=== PATIENT | female | born 1975 | race Caucasian/White ===

== ENCOUNTER 2017-03-31 10:22 | Emergency (ER) | payer SELFPAY ==
[2017-03-31 12:03] VITALS: BP 188/113
--- NOTE | 2017-03-31 12:06 | UC ---
Manuel Bean Aidan, scribed for Jessenia Gleason MD on 03/31/17 at 1113 . Skin Complaint HPI - HPI Summary HPI Summary: 41 y/o female presents to the Urgent Care with a complaint of acute, constant, [id number] itchy red bumps on her hands and forearms bilaterally that have persisted for the past 20 years. She is here today because her rash has been exacerbated and she requests prednisone. She has tried applying Triamcinolone ointment to no relief. Additionally, she requests Xanax for anxiety. ISTOP reference #[id number]. - History of Current Complaint Chief Complaint: UCSkin Time Seen by Provider: 03/31/17 10:49 Stated Complaint: SKIN ISSUE Hx Obtained From: Patient Hx Last Menstrual Period: 03/12/17 ?: No Onset/Duration: Gradual Onset, Lasting Weeks, Still Present, Worse Since - very recently Skin Exposure Onset/Duration: Worse Since: - very recently (see hpi) Timing: Constant Onset Severity: Moderate Current Severity: Moderate Pain Intensity: 0 - just itchy Pain Scale Used: 0-10 Numeric Location: Discrete - hands and arms bilaterally Character: Pruritus, Redness, Raised Aggravating: Other - unknown Alleviating: Other - unknown Associated Signs & Symptoms: Negative: Negative - anxiety, itchiness - Allergy/Home Medications Allergies/Adverse Reactions: Allergies Allergy/AdvReac Type Severity Reaction Status Date / Time Penicillins Allergy Unknown Verified 08/22/16 10:05 Reaction Details Review of Systems Constitutional: Negative Skin: Rash Eyes: Negative ENT: Negative Respiratory: Negative Cardiovascular: Negative Gastrointestinal: Negative Genitourinary: Negative Motor: Negative Neurovascular: Negative Musculoskeletal: Negative Neurological: Negative Psychological: Anxious All Other Systems Reviewed And Are Negative: Yes PMH/Surg Hx/FS Hx/Imm Hx - Surgical History Surgical History: Yes Surgery Procedure, Year, and Place: d/c 09/30/14 - Family History Known Family History: Positive: Hypertension - Social History Occupation: Employed Full-time Lives: Alone Alcohol Use: Daily Alcohol Amount: Every few days Substance Use Type: None Smoking Status (MU): Heavy Every Day Tobacco Smoker Type: Cigarettes Amount Used/How Often: 1/2 PPD Have You Smoked in the Last Year: Yes Household Exposure Type: Cigarettes - Immunization History Most Recent Influenza Vaccination: never Most Recent Tetanus Shot: up to date Most Recent Pneumonia Vaccination: never Physical Exam Triage Information Reviewed: Yes Appearance: Well-Nourished Vital Signs: Initial Vital Signs Temp 98.1 F 03/31/17 10:40 Pulse 96 03/31/17 10:40 Resp 18 03/31/17 10:40 BP 136/101 03/31/17 10:40 Pulse Ox 100 03/31/17 10:40 Vital Signs Reviewed: Yes Eye Exam: Normal ENT Exam: Normal ENT: Positive: Normal ENT inspection Neck exam: Normal Neck: Positive: Supple Respiratory Exam: Normal, Other - normal respiratory rate, no dyspnea no tachypnea Respiratory: Positive: Chest non-tender, Lungs clear, Normal breath sounds, No respiratory distress Cardiovascular Exam: Normal, Other - regular rate, good general skin color, good capillary refill Cardiovascular: Positive: RRR, No Murmur, Pulses Normal, Brisk Capillary Refill Abdominal Exam: Normal Abdomen Description: Positive: Nontender, No Organomegaly, Soft Bowel Sounds: Positive: Present Musculoskeletal Exam: Normal Musculoskeletal: Positive: Strength Intact Neurological Exam: Normal, Other - nonfocal, grossly intact Psychological Exam: Normal, Other - responds easily and appropriately Skin Exam: Other - bilateral forearm, extending to fingertip dermatitis with red raised plaques and scattered blisters, in more or less glove pattern. No mary beth cellulitis or infection. CR > 2 xec, + sensation present light touch. Moves all fingers and both hands. Bends / straigthtens elbow. Course/Dx - Course Course Of Treatment: Reviewed ISTOP, c/w hx. Narc/archie talk w/ pt. Reviewed importance of f/u pcp, as soon as possible. Advised to seek medical attention for worse or new problems. Requests rx refill for synthroid generic. She is searching for a new doctor 2/2 insurance changes, and trying to find a new doctor. She says she is aware of the importance of follow up. Rx refill for triamcinolone (requests cream not ointment). Delay in discharge, due to computer error in transmitting scripts. BRIAN Chin (working under my auspices today) wrote alprozolam script. Questions answered to the best of my ability. - Diagnoses Provider Diagnoses: dermatitis. anxiety. thyroid medication refill Discharge - Discharge Plan Condition: Stable Disposition: HOME Prescriptions: ALPRAZolam TAB* [Xanax TAB*] 0.5 mg PO Q8H PRN #21 tab MDD THREE TABS PRN Reason: Anxiety Alprazolam [Alprazolam Odt] 0.5 mg PO Q8H PRN #21 tab MDD 3 PRN Reason: Anxiety Levothyroxine TAB* [Synthroid TAB*] 75 mcg PO DAILY #30 tab Triamcinolone 0.5% CREAM(NF) [Triamcinolone 0.5% CREAM*] 1 applic TOPICAL BID # 1 tube predniSONE TAB* [Deltasone TAB*] 10 mg PO DAILY #20 tab Patient Education Materials: Anxiety (ED), Dermatitis (ED) Referrals: No Primary Care Phys,NOPCP [Primary Care Provider] - Additional Instructions: Follow up with your primary care physician as soon as you are able. Seek medical attention for worse or new problems in the meantime. The documentation as recorded by the Manuel holguin Aidan accurately reflects the service I personally performed and the decisions made by me, Jessenia Gleason MD.
== END 2017-03-31 12:03 | disposition home or self-care (01) ==
LOC: UCEAST 10:22
DX: L30.9 Dermatitis, unspecified (principal); F41.9 Anxiety disorder, unspecified; Z76.0 Encounter for issue of repeat prescription; Z72.0 Tobacco use
CPT/HCPCS: 99212; G0463

== ENCOUNTER 2017-07-27 08:57 | Emergency (ER) | payer SELFPAY ==
--- NOTE | 2017-07-27 10:43 | UC ---
Truncal Trauma HPI - HPI Summary HPI Summary: 41 yo female 3 days s/p falling onto a stool injured left chest below breast also hit left upper arm hurts to take a deep breath hurts to lay on left side - History Of Current Complaint Chief Complaint: UCGeneralIllness Stated Complaint: RIB PAIN Time Seen by Provider: 07/27/17 10:08 Hx Obtained From: Patient Hx Last Menstrual Period: 07/25/17 Onset/Duration: Sudden Onset Onset Of Pain: Immediate Severity Currently: Severe Pain Intensity: 8 Pain Scale Used: 0-10 Numeric Mechanism Of Injury: Fall From A Standing Position Aggravating Factor(s): Movement, Deep Breathing, Cough Alleviating factor(s): Nothing Associated Signs And Symptoms: Positive: Chest Pain Torso: 1 - tender 2 - ecchymosis - Allergies/Home Medications Allergies/Adverse Reactions: Allergies Allergy/AdvReac Type Severity Reaction Status Date / Time Penicillins Allergy Unknown Verified 07/27/17 09:52 Reaction Details Home Medications: Home Medications Ibuprofen TAB* [Advil TAB*] 3 tab PO PRN 07/27/17 [History] PMH/Surg Hx/FS Hx/Imm Hx Previously Healthy: Yes - Surgical History Surgical History: Yes Surgery Procedure, Year, and Place: d/c 09/30/14 - Family History Known Family History: Positive: Hypertension - Social History Alcohol Use: Daily Alcohol Amount: Every few days Substance Use Type: None Smoking Status (MU): Heavy Every Day Tobacco Smoker Type: Cigarettes Amount Used/How Often: 1/2 PPD Have You Smoked in the Last Year: Yes Household Exposure Type: Cigarettes - Immunization History Most Recent Influenza Vaccination: never Most Recent Tetanus Shot: up to date Most Recent Pneumonia Vaccination: never Review of Systems Constitutional: Negative Skin: Bruising Eyes: Negative ENT: Negative Respiratory: Negative Cardiovascular: Chest Pain Gastrointestinal: Negative Genitourinary: Negative Motor: Negative Neurovascular: Negative Musculoskeletal: Negative Neurological: Negative Psychological: Negative Is Patient Immunocompromised?: No All Other Systems Reviewed And Are Negative: Yes Physical Exam Triage Information Reviewed: Yes Appearance: Well-Appearing, No Pain Distress, Well-Nourished Vital Signs: Initial Vital Signs Temp 99.4 F 07/27/17 09:53 Pulse 90 07/27/17 09:53 Resp 18 07/27/17 09:53 BP 190/96 07/27/17 09:53 Pulse Ox 100 07/27/17 09:53 Vital Signs Reviewed: Yes Eyes: Positive: Conjunctiva Clear ENT: Positive: Hearing grossly normal, Pharynx normal, Pharyngeal erythema Neck: Positive: Supple Respiratory: Positive: Lungs clear, Normal breath sounds, No respiratory distress. Negative: Chest non-tender Cardiovascular: Positive: RRR, No Murmur Abdomen Description: Positive: Nontender Musculoskeletal: Positive: ROM Intact, No Edema Neurological: Positive: Alert Psychological Exam: Normal Skin Exam: Normal Diagnostics - Laboratory Diagnostic Studies Completed/Ordered: POx (RA): 100% Comment: normal/not hypoxic Truncal Trauma Course/Dx - Differential Dx/Diagnosis Provider Diagnoses: LEFT SIDE CHEST WALL AND RIB CONTUSION. ? OCCULT RIB FRACTURE. LEFT ARM CONTUSION Discharge - Discharge Plan Condition: Stable Disposition: HOME Prescriptions: HYDROcodone/ACETAMIN 5-325 MG* [Blanchard 5-325 TAB*] 1 tab PO Q4H PRN #20 tab MDD 4 PRN Reason: Pain Ibuprofen TAB* [Motrin TAB*] 600 mg PO Q6H PRN #40 tab PRN Reason: Pain Patient Education Materials: Rib Contusion (ED) Forms: *Work Release Referrals: [facility] [place] [facility] [place]] - As Soon As Possible (call to find a provider you need your BP followed) No Primary Care Phys,NOPCP [Primary Care Provider] -
--- NOTE | 2017-07-27 11:02 | RAD ---
Indication: LEFT lower anterior rib pain post fall. Comparison: October 06, [address] Technique: Dual energy PA chest and 4 view dedicated LEFT unilateral rib series. Report: Artifact from extrinsic jewelry at the LEFT margin of the jugular notch/base of the neck. Inferolateral LEFT skin marker indicating the site of clinical concern at the level of the eighth rib anterolaterally. Mild osseous irregularity with suggestion of callus formation at the LEFT eighth rib laterally most consistent with a healing fracture. No acute rib fracture evident. Clear lungs and pleural spaces. Negative for pneumothorax. The heart, pulmonary vasculature, and mediastinal contours are unremarkable. IMPRESSION: No acute rib fracture evident. Suggestion of a healing fracture at the LEFT eighth rib laterally. Negative for pneumothorax or pleural effusion.
[2017-07-27 11:31] VITALS: BP 160/90
== END 2017-07-27 11:21 | disposition home or self-care (01) ==
LOC: UCEAST 08:57
DX: S22.32XA Fracture of one rib, left side, initial encounter for closed fracture (principal); S20.212A Contusion of left front wall of thorax, initial encounter; W19.XXXA Unspecified fall, initial encounter; Y92.9 Unspecified place or not applicable; Z88.0 Allergy status to penicillin; F17.210 Nicotine dependence, cigarettes, uncomplicated
CPT/HCPCS: 99212; G0463

== ENCOUNTER 2017-09-16 11:38 | Emergency (ER) | payer SELFPAY ==
[2017-09-16 11:49] VITALS: BP 142/88
--- NOTE | 2017-09-16 13:02 | UC ---
Back Pain HPI - HPI Summary HPI Summary: Pt presents reporting 3 days of back pain. Pt states started at work with lifting. Pain in lower back, bilateral. No radiation. No change in bowel/ bladder. Pt with h/o similar back pain. No paresthesia. Pt has been wearing topical OTC patches. No other complaints Pt's medications reviewed this visit - History of Current Complaint Chief Complaint: UCBackPain Stated Complaint: BACK PAIN Time Seen by Provider: 09/16/17 12:44 Hx Obtained From: Patient Hx Last Menstrual Period: today ?: No Onset/Duration: Gradual Onset, Lasting Days Severity Initially: Moderate Severity Currently: Moderate Pain Intensity: 4 Pain Scale Used: 0-10 Numeric Character: Spasmodic, Stiffness Aggravating Factor(s): Movement, Lifting, Bending - Allergies/Home Medications Allergies/Adverse Reactions: Allergies Allergy/AdvReac Type Severity Reaction Status Date / Time Penicillins Allergy Unknown Verified 09/16/17 11:52 Reaction Details PMH/Surg Hx/FS Hx/Imm Hx Previously Healthy: Yes - Surgical History Surgical History: Yes Surgery Procedure, Year, and Place: d/c 09/30/14 - Family History Known Family History: Positive: Hypertension - Social History Occupation: Employed Full-time Lives: With Family Alcohol Use: Occasionally Alcohol Amount: Every few days Substance Use Type: None Smoking Status (MU): Heavy Every Day Tobacco Smoker Type: Cigarettes Amount Used/How Often: 1/2 PPD Have You Smoked in the Last Year: Yes Household Exposure Type: Cigarettes - Immunization History Most Recent Influenza Vaccination: never Most Recent Tetanus Shot: up to date Most Recent Pneumonia Vaccination: never Review of Systems Constitutional: Negative Skin: Negative Motor: Negative Neurovascular: Negative Musculoskeletal: Other: - back pain Neurological: Negative Psychological: Negative All Other Systems Reviewed And Are Negative: Yes Physical Exam Triage Information Reviewed: Yes Appearance: Well-Appearing, No Pain Distress, Well-Nourished, Other: - Pt curled up sleeing in stretcher. NAD pt easily changed position to sitting and standing without difficulty or limitation Vital Signs: Initial Vital Signs Temp 97.7 F 09/16/17 11:43 Pulse 91 09/16/17 11:43 Resp 16 09/16/17 11:43 BP 142/88 09/16/17 11:43 Pulse Ox 100 09/16/17 11:43 Vital Signs Reviewed: Yes Eye Exam: Normal Eyes: Positive: Conjunctiva Clear ENT Exam: Normal ENT: Positive: Normal ENT inspection, Hearing grossly normal, Pharynx normal Dental Exam: Normal Neck exam: Normal Neck: Positive: Supple, Nontender, No Lymphadenopathy Respiratory Exam: Normal Respiratory: Positive: Chest non-tender, Lungs clear, Normal breath sounds, No respiratory distress, No accessory muscle use Cardiovascular Exam: Normal Cardiovascular: Positive: RRR, No Murmur Abdominal Exam: Normal Abdomen Description: Positive: Nontender - no spinous process pain c/t/l/s full AROM upper ext + mild paraspinal pain lower lumbar area + SLE b/l + flex/ext knee,ankles, great toe Musculoskeletal Exam: Normal Neurological Exam: Normal Neurological: Positive: Other: - 2+ patellar b/l no clonus + gross sensation throughout Psychological Exam: Normal Back Pain Course/Dx - Course Course Of Treatment: Pt with back pain after lifting. no crepitus. pt in no obvious discomfort. CSM intact. heat. stretch. motrin/apap. work limitations - Differential Dx/Diagnosis Provider Diagnoses: back strain Discharge - Discharge Plan Condition: Stable Disposition: HOME Prescriptions: Cyclobenzaprine HCl [Flexeril 5 mg (NF)] 5 mg PO BID #10 tab Patient Education Materials: Low Back Strain (ED) Forms: *Work Release Referrals: Jeffry Carlos MD [Primary Care Provider] - Additional Instructions: - okay to take NAproxyn 2 times a day. you may also take Tylenol every 6 hours as needed - okay to take muscle relaxer as prescribed. Do not drive, operate machinery or drink alcohol while taking xanax - apply heat, 20 minutes at a time, 2-3 times a day for back pain. when your muscles are warm, slow gentle stretching exercises you have been given a referral to physical therapy call your doctor or return with questions or concerns
== END 2017-09-16 13:13 | disposition home or self-care (01) ==
LOC: UCEAST 11:38
DX: M54.9 Dorsalgia, unspecified (principal); Z88.0 Allergy status to penicillin
CPT/HCPCS: 99212; G0463

== ENCOUNTER 2017-11-06 11:44 | Emergency (ER) | payer OTHER ==
[2017-11-06 14:31] VITALS: BP 153/101
[2017-11-06] MEDS ORDERED: Ketorolac INJ* 60 MG/2 ML VIAL IM ONE (14:52)
--- NOTE | 2017-11-06 15:12 | UC ---
Back Pain HPI - HPI Summary HPI Summary: 41 y/o female presents to the urgent care c/p Rt side lower back pain s/p fall since Thursday11/03/2017. Pt reports she slipped on ice at home and fell on her buttocks. Pain was mild. However this morning she lifted a 60lb box at work and pain became worse 6/10 with movement radiating to her Rt hip. Pt denies numbness or tingling over the lower extremities, saddle anesthesia, fecal or urinary incontinence, abdominal pain, SOB, chest pain, N/V/D LMP:11/05/2016. - History of Current Complaint Chief Complaint: UCBackPain Stated Complaint: FALL INJURY Time Seen by Provider: 11/06/17 14:39 Hx Obtained From: Patient Hx Last Menstrual Period: 11/05/2017 ?: No Onset/Duration: Sudden Onset, Lasting Days - 3 days, Still Present, Worse Since - today Timing: Constant Severity Initially: Mild Severity Currently: Moderate Pain Intensity: 6 Pain Scale Used: 0-10 Numeric Character: Sharp, Spasmodic Aggravating Factor(s): Movement, Lifting, Bending Alleviating Factor(s): Rest, OTC Meds Associated Signs And Symptoms: Positive: Pain with Weight Bearing. Negative: Swelling, Redness, Bruising, Fever, Weakness, Numbness, Tingling, Bladder Incontinence, Bowel Incontinence - Risk Factors AAA Risk Factors: Negative TAD Risk Factors: Negative Cauda Equina Risk Factors: Negative Epidural Abscess Risk Factors: Negative - Allergies/Home Medications Allergies/Adverse Reactions: Allergies Allergy/AdvReac Type Severity Reaction Status Date / Time Penicillins Allergy Unknown Verified 11/06/17 14:23 Reaction Details PMH/Surg Hx/FS Hx/Imm Hx Previously Healthy: Yes Endocrine History: Hypothyroidism Psychological History: Anxiety - Surgical History Surgical History: None Surgery Procedure, Year, and Place: d/c 09/30/14 - Family History Known Family History: Positive: Hypertension - Social History Occupation: Employed Full-time Lives: With Family Alcohol Use: Daily Alcohol Amount: 2 glasses of wine per night Substance Use Type: Prescribed Substance Use Comment - Amount & Last Used: xanax as needed Smoking Status (MU): Heavy Every Day Tobacco Smoker Type: Cigarettes Amount Used/How Often: 1/2 PPD Have You Smoked in the Last Year: Yes Household Exposure Type: Cigarettes - Immunization History Most Recent Influenza Vaccination: never Most Recent Tetanus Shot: up to date Most Recent Pneumonia Vaccination: never Review of Systems Constitutional: Negative Skin: Negative Eyes: Negative ENT: Negative Respiratory: Negative Cardiovascular: Negative Gastrointestinal: Negative Genitourinary: Negative Motor: Negative Neurovascular: Negative Musculoskeletal: Decreased ROM - lower back, Other: - lower back pain s/p fall Neurological: Negative Psychological: Negative Is Patient Immunocompromised?: No All Other Systems Reviewed And Are Negative: Yes Physical Exam Triage Information Reviewed: Yes Vital Signs: Initial Vital Signs Temp 99.1 F 11/06/17 14:24 Pulse 98 11/06/17 14:24 Resp 18 11/06/17 14:24 BP 153/101 11/06/17 14:24 Pulse Ox 99 11/06/17 14:24 - Additional Comments Vital Signs Reviewed: Yes Appearance: Well-Appearing, Well-Nourished, Thin female sitting in the examining table w/o any apparent distress. Eyes: Positive: Conjunctiva Clear - PERRLA, EOMI. ENT: Positive: Normal ENT inspection, Hearing grossly normal, Pharynx normal, TMs normal, Uvula midline Neck: Positive: Supple, Nontender, No Lymphadenopathy Respiratory: Positive: Chest non-tender, Lungs clear, Normal breath sounds, No respiratory distress Cardiovascular: Positive: RRR, No Murmur, Pulses Normal, Brisk Capillary Refill Abdomen Description: Positive: Nontender, No Organomegaly, Soft. Negative: CVA Tenderness (R), CVA Tenderness (L) Bowel Sounds: Positive: Present Musculoskeletal: Positive: Strength Intact, Other: - BACK: Patient walked into the urgent care room with symmetric ambulation, No signs of limping, antalgic, able to bear weight. No signs of trauma, No masses palpated. Point tenderness at the level of L1-L4, RT paraspinal muscle spasm at level L4 -No CVAT, no flank ecchymosis . No sacroiliac notch tenderness, No saddle anesthesia.ROM: limited due to pain, Straight Leg Raise: negative. Patellar reflexes: brisk, symmetric Muscle strength lower extremities. Dorsiflexion/ plantar flexion of ankles. Heel/ toe walk. Lower extremities: Femoral, popliteal, posterior tibial , and dorsalis pedis pulses WNL. Pt refuse rectal exam Neurological: Positive: Alert, Muscle Tone Normal Psychological Exam: Normal Skin Exam: Normal Back Pain Course/Dx - Course Course Of Treatment: 41 y/o female presents to the urgent care c/p Rt side lower back pain s/p fall since Thursday11/03/2017. Pt reports she slipped on ice at home and fell on her buttocks. Pain was mild. However this morning she lifted a 60lb box at work and pain became worse 6/10 with movement radiating to her Rt hip. Pt denies numbness or tingling over the lower extremities, saddle anesthesia, fecal or urinary incontinence, abdominal pain, SOB, chest pain, N/V/ D. LMP:11/05/2016.Hx obtained. Pt with mid point tenderness at the level of L1- L4, RT paraspinal muscle spasm at level L4. Lumbar spine X-ray ordered: Impression: DDD at L1-L2, L2-L3, L3-L4, No acutes osseous injury observed and mild scoliois.Toradol IM inj ordered at the clinic. Given by nurse. Pt tolerated well IM inj and pain decrease. Pt Rx Naproxen PO, flexeril PO, Predinisone PO taper dose and given a PT referral. Patient was instructed to the f/u wit orthopedic in 1 week if symptoms do not improve or worsen. Patient understands and agrees. Patient is able to ambulate freely w/o aid or limp. Pt' s BP is elevated today advised to decrease salt in diet, monitor BP and f/u with PCP for further management. Plan of care was discussed with the patient and patient understands and agrees. All questions were answered at patient satisfaction. Pt left clinic hemodynamically stable. - Differential Dx/Diagnosis Differential Diagnosis/HQI/PQRI: Arthritis, Compressive Cord Syndrome, Fracture , Herniated Disc, Strain, Sprain Provider Diagnoses: 1- Acute lower back pain. 2- Degenerative Disce disease. 3 -Back muscle spasm. 4- Elevated BP w/o Hx of HTN Discharge - Discharge Plan Condition: Stable Disposition: HOME Prescriptions: Cyclobenzaprine TAB* [Flexeril 10 MG TAB*] 10 mg PO TID PRN #15 tab PRN Reason: Spasms - Back Methylprednisolone [Medrol Dosepak 4 MG*] 4 mg PO .SEE BETTY INSTRUCTION #1 betty Naproxen [Naproxen 500 mg] 500 mg PO Q8H PRN #30 tab PRN Reason: Pain Patient Education Materials: Acute Low Back Pain (ED), Low-Sodium Diet (ED), Muscle Spasm (ED), Degenerative Disc Disease (ED) Referrals: Jeffry Carlos MD [Primary Care Provider] - 1 Week Adan Lennon MD [Medical Doctor] - 1 Week Additional Instructions: 1- Please take Naproxen PO as directed after meals for pain. Take Medrol dose betty to alleviate symptoms 2- Take Flexeril PO as directed for muscle spasm. Please do not drive while taking the medication. 3- Wear a back support. Avoid strenuous exercise of heavy lifting. 4- Please follow up with Orthopedic Dr or your PCP in 1 week if not improvement of symptoms, for further management. 5-Your BP is elevated today. please decrease salt in your diet, monitor BP and if it continues to be elevated please f/u with your PCP for further management
--- NOTE | 2017-11-06 15:24 | RAD ---
INDICATION: Low back pain status post fall. COMPARISON: There are no prior studies available for comparison. TECHNIQUE: 5 views of the lumbar spine were obtained including lateral, oblique, AP and a coned-down lateral view of the lumbar sacral junction. FINDINGS: There is a mild lumbar scoliosis convex toward the right side. The vertebra are otherwise in normal alignment. No fracture is seen. There is mild degenerative disc disease at the L1-L2, L2-L3 and L3-L4 levels. IMPRESSION: NO EVIDENCE FOR FRACTURE.
== END 2017-11-06 16:05 | disposition home or self-care (01) ==
LOC: UCEAST 11:44
DX: M54.5 Low back pain (principal); M62.830 Muscle spasm of back; M51.36 Other intervertebral disc degeneration, lumbar region; E03.9 Hypothyroidism, unspecified; F41.9 Anxiety disorder, unspecified; Z88.0 Allergy status to penicillin; F17.210 Nicotine dependence, cigarettes, uncomplicated
CPT/HCPCS: 72110; 96372; 99212; G0463; J1885

== ENCOUNTER 2018-01-06 09:39 | Emergency (ER) | payer OTHER ==
[2018-01-06 10:01] VITALS: BP 146/97
--- NOTE | 2018-01-06 10:35 | UC ---
Minor Trauma HPI - HPI Summary HPI Summary: Slipped and fell on her porch Thursday pain in her left lateral and posterior ribs. Patient denies shortness of breath - History of Current Complaint Chief Complaint: UCGeneralIllness Stated Complaint: RIB INJURY Time Seen by Provider: 01/06/18 10:26 Hx Obtained From: Patient Hx Last Menstrual Period: 12/11/17 ?: No Onset/Duration: Sudden Onset, Lasting Days - 4 Onset Of Pain: Immediate Severity Initially: Moderate Severity Currently: Moderate Pain Intensity: 6 Pain Scale Used: 0-10 Numeric Mechanism Of Injury: Blunt Trauma, Fall From A Standing Position Aggravating Factor(s): Coughing, Deep Breaths, Movement Alleviating Factor(s): Nothing - Allergies/Home Medications Allergies/Adverse Reactions: Allergies Allergy/AdvReac Type Severity Reaction Status Date / Time Penicillins Allergy unk Verified 01/06/18 09:49 PMH/Surg Hx/FS Hx/Imm Hx Previously Healthy: No Endocrine History: Thyroid Disease Psychological History: Anxiety - Surgical History Surgical History: Yes Surgery Procedure, Year, and Place: d&c 09/30/14 - Family History Known Family History: Positive: Hypertension - Social History Occupation: Employed Full-time Alcohol Use: Daily Alcohol Amount: 2 glasses of wine per night Substance Use Type: Prescribed Substance Use Comment - Amount & Last Used: xanax as needed Smoking Status (MU): Heavy Every Day Tobacco Smoker Type: Cigarettes Amount Used/How Often: 1/2 PPD Have You Smoked in the Last Year: Yes Household Exposure Type: Cigarettes Cessation Counseling: Counseled 3+Min - 10 Min - Immunization History Most Recent Influenza Vaccination: never Most Recent Tetanus Shot: up to date Most Recent Pneumonia Vaccination: never Review of Systems Constitutional: Negative Skin: Negative Eyes: Negative ENT: Negative Respiratory: Negative, Other - Left posterior lateral rib pain Cardiovascular: Negative Gastrointestinal: Negative Genitourinary: Negative Motor: Negative Neurovascular: Negative Musculoskeletal: Negative Neurological: Negative Psychological: Negative Is Patient Immunocompromised?: No All Other Systems Reviewed And Are Negative: Yes Physical Exam Triage Information Reviewed: Yes Appearance: Well-Appearing, No Pain Distress, Well-Nourished Vital Signs: Initial Vital Signs Temp 97.9 F 01/06/18 09:58 Pulse 91 01/06/18 09:58 Resp 18 01/06/18 09:58 BP 146/97 01/06/18 09:58 Pulse Ox 100 01/06/18 09:58 Vital Signs Reviewed: Yes Eye Exam: Normal Eyes: Positive: Conjunctiva Clear ENT Exam: Normal ENT: Positive: Normal ENT inspection, Hearing grossly normal, Pharynx normal, TMs normal, Uvula midline. Negative: Nasal congestion, Nasal drainage, Tonsillar swelling, Tonsillar exudate, Trismus, Muffled voice, Hoarse voice, Dental tenderness, Sinus tenderness Dental Exam: Normal Neck exam: Normal Neck: Positive: Supple, Nontender, No Lymphadenopathy Respiratory Exam: Normal Respiratory: Positive: Chest non-tender, Lungs clear, Normal breath sounds, No respiratory distress, No accessory muscle use Cardiovascular Exam: Normal Cardiovascular: Positive: RRR, No Murmur, Pulses Normal, Brisk Capillary Refill Abdominal Exam: Normal Abdomen Description: Positive: Nontender, No Organomegaly, Soft. Negative: CVA Tenderness (R), CVA Tenderness (L) Bowel Sounds: Positive: Present Musculoskeletal Exam: Normal Musculoskeletal: Positive: Strength Intact, ROM Intact, No Edema Neurological Exam: Normal Neurological: Positive: Alert, Muscle Tone Normal - In the morning and feels like a sharp and throbbing does not radiate normal BMs. She is urinating breath she's significant for breast cancer history is partial mastectomy Psychological Exam: Normal Skin Exam: Normal Diagnostics - Radiology No standard instances Xray Interpretation: No Acute Changes Radiology Interpretation Completed By: Radiologist Minor Trauma Course/Dx - Course Course Of Treatment: Follow rib injury and blood pressure with PCP nicotine cessation information pain control - Differential Dx/Diagnosis Provider Diagnoses: Left rib contusion, nicotine dependent, elevated blood pressure without diagnosis of hypertension. Discharge - Sign-Out/Discharge Documenting (check all that apply): Discharge - Discharge Plan Condition: Stable Disposition: HOME Prescriptions: Ibuprofen TAB* [Motrin TAB* 600 MG] 600 mg PO Q6H PRN #30 tab PRN Reason: pain Patient Education Materials: Hypertension (ED), Ice Pack Application (ED), Rib Contusion (ED) Referrals: Jeffry Carlos MD [Primary Care Provider] - 2 Weeks - Billing Disposition and Condition Condition: STABLE Disposition: HOME
--- NOTE | 2018-01-06 11:14 | RAD ---
INDICATION: Posterior left rib pain COMPARISON: Left ribs July 27, 2017 TECHNIQUE: Multiple views of the ribs were obtained. FINDINGS: Bones: There is no evidence of acute rib fracture. LUNGS: The lungs are clear. There is no pneumothorax. Pleural spaces: There is no evidence of hemothorax. Other: None IMPRESSION: NO ACUTE RIB FRACTURE.
== END 2018-01-06 11:46 | disposition home or self-care (01) ==
LOC: UCEAST 09:39
DX: S20.222A Contusion of left back wall of thorax, initial encounter (principal); W01.0XXA Fall on same level from slipping, tripping and stumbling without subsequent striking against object, initial encounter; Y93.9 Activity, unspecified; Y92.008 Other place in unspecified non-institutional (private) residence as the place of occurrence of the external cause; R03.0 Elevated blood-pressure reading, without diagnosis of hypertension; E07.9 Disorder of thyroid, unspecified; F41.9 Anxiety disorder, unspecified; Z88.0 Allergy status to penicillin; Z71.6 Tobacco abuse counseling; F17.210 Nicotine dependence, cigarettes, uncomplicated
CPT/HCPCS: 99211; G0463

== ENCOUNTER 2018-02-11 11:34 | Emergency (ER) | payer OTHER ==
[2018-02-11 12:56] VITALS: BP 149/88
[2018-02-11] MEDS ORDERED: Ibuprofen TAB* 200 MG PO ONE (14:04)
[2018-02-11] MEDS ORDERED: Acetaminophen TAB* 325 MG PO ONE (14:05)
--- NOTE | 2018-02-11 14:07 | UC ---
Back Pain HPI - HPI Summary HPI Summary: C/O CHRONIC BILAT LOWER BACK PAIN SINCE FALL 12/2017. FALL CAUSED RIB PAIN BUT INCIDENTAL FINDING OF DDD AND PT STATES SHE HAS HAD CHRONIC BACK PAIN SINCE. DENIES HX OF BACK PAIN PRIOR TO FALL AND RIB PAIN. STATES SHE HAS TRIED LIDOCAINE PATCHES, MUSCLE RELAXERS, TYLENOL, IBUPROVBEN, NAPROXEN W/O RELIEF. IS ASKING FOR OPIODS. PT STATES DR STONER WILL NO LONGER PRESCRIBE PAIN MEDS FOR HER, AND WAS TOLD TO COME HERE FOR PAIN MANAGEMENT. PAIN CONSTANT, WORSE WITH STANDING, MOVEMENT. DENIES NEW TRAUMA, RADIATION OF PAIN, INCONTINENCE, URINARY RETENTION, LOSS OF SENSATION OR FUNCTION IN BILAT LE. AMBULATORY - History of Current Complaint Hx Obtained From: Patient Hx Last Menstrual Period: 1 week ago Onset/Duration: Gradual Onset Timing: Constant Severity Initially: Mild Severity Currently: Severe Pain Intensity: 10 Pain Scale Used: 0-10 Numeric Back Pain: Is Discrete @ Character: Sharp, Aching Aggravating Factor(s): Movement, Bending, Walking Alleviating Factor(s): Nothing Associated Signs And Symptoms: Positive: Negative <Nathaniel Theodore - Last Filed: 02/11/18 21:32> <Anju Thompson - Last Filed: 02/12/18 05:14> - History of Current Complaint Chief Complaint: UCBackPain Stated Complaint: BACK PAIN Time Seen by Provider: 02/11/18 13:16 - Allergies/Home Medications Allergies/Adverse Reactions: Allergies Allergy/AdvReac Type Severity Reaction Status Date / Time Penicillins Allergy unk Verified 02/11/18 12:56 Home Medications: Home Medications Methocarbamol 750 mg PO BID 02/11/18 [History Confirmed 02/11/18] PMH/Surg Hx/FS Hx/Imm Hx - Surgical History Surgical History: Yes Surgery Procedure, Year, and Place: d&c 09/30/14 - Family History Known Family History: Positive: Hypertension - Social History Alcohol Use: Daily Alcohol Amount: 2 glasses of wine per night Substance Use Type: Prescribed Substance Use Comment - Amount & Last Used: xanax as needed Smoking Status (MU): Heavy Every Day Tobacco Smoker Type: Cigarettes Amount Used/How Often: 1/2 PPD Have You Smoked in the Last Year: Yes Household Exposure Type: Cigarettes - Immunization History Most Recent Influenza Vaccination: never Most Recent Tetanus Shot: up to date Most Recent Pneumonia Vaccination: never <Nathaniel Theodore - Last Filed: 02/11/18 21:32> Review of Systems Constitutional: Negative Skin: Negative Eyes: Negative ENT: Negative Respiratory: Negative Cardiovascular: Negative Gastrointestinal: Negative Genitourinary: Negative Motor: Negative Neurovascular: Negative Musculoskeletal: Myalgia Neurological: Negative Psychological: Negative Is Patient Immunocompromised?: No All Other Systems Reviewed And Are Negative: Yes <ArbenNathaniel danielle - Last Filed: 02/11/18 21:32> Physical Exam - Summary Physical Exam Summary: NO ECCHYMOSIS, ERYTHEMA, DEFORMITY, EXTRA WARMTH NOTED TO LOWER BACK. [place] TENDERNESS ALONG LSPINE. NO PARASPINAL TENDERNESS. PMS INTACT ON BILAT LE. Triage Information Reviewed: Yes Appearance: Well-Appearing Vital Signs: Initial Vital Signs Temp 98.4 F 02/11/18 12:50 Pulse 92 02/11/18 12:50 Resp 18 02/11/18 12:50 BP 149/88 02/11/18 12:50 Pulse Ox 98 02/11/18 12:50 Vital Signs Reviewed: Yes Eye Exam: Normal Eyes: Positive: Conjunctiva Clear Neck exam: Normal Respiratory Exam: Normal Cardiovascular Exam: Normal Abdominal Exam: Normal Musculoskeletal Exam: Normal Neurological Exam: Normal Psychological Exam: Normal Skin Exam: Normal <ArbenNathaniel - Last Filed: 02/11/18 21:32> Vital Signs: Initial Vital Signs Temp 98.4 F 02/11/18 12:50 Pulse 92 02/11/18 12:50 Resp 18 02/11/18 12:50 BP 149/88 02/11/18 12:50 Pulse Ox 98 02/11/18 12:50 <Anju Thompson - Last Filed: 02/12/18 05:14> Back Pain Course/Dx - Course Course Of Treatment: PT STATES SHE HAS TRIED LIDOCAINE PATCHES, MUSCLE RELAXERS , TYLENOL, IBUPROVBEN, NAPROXEN W/O RELIEF. IS ASKING FOR OPIODS. NO HX OF BACK PAIN BEFORE RECENT FALL. STATES DDD WAS NOTED AND NOW SHE HAS CHRONIC BACK PAIN IN BILAT LOWER BACK. PT STATES DR STONER WILL NO LONGER PRESCRIBE PAIN MEDS FOR HER , AND WAS TOLD TO COME HERE FOR PAIN MANAGEMENT. 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 No prescription for opioids will be given from here. Will be told to follow-up with primary provider and pain management - Differential Dx/Diagnosis Provider Diagnoses: chronic back pain <Nathaniel Theodore - Last Filed: 02/11/18 21:32> Discharge - Sign-Out/Discharge Documenting (check all that apply): Discharge/Admit/Transfer - Billing Disposition and Condition Condition: STABLE Disposition: HOME <Nathaniel Theodore - Last Filed: 02/11/18 21:32> - Billing Disposition and Condition Condition: STABLE Disposition: HOME <Anju Thompson - Last Filed: 02/12/18 05:14> - Discharge Plan Condition: Stable Disposition: HOME Patient Education Materials: Chronic Back Pain (ED) Referrals: Jeffry Stoner MD [Primary Care Provider] - Additional Instructions: FOLLOW UP WITH PAIN MANAGEMENT. Attestation Statement Scribe Attestation: I was available for consult. This patient was seen by the RODOLFO. The patient was not presented to, seen by, or examined by me. -[place] <Anju Thompson - Last Filed: 02/12/18 05:14>
== END 2018-02-11 14:15 | disposition home or self-care (01) ==
LOC: UCEAST 11:34
DX: G89.21 Chronic pain due to trauma (principal); M54.5 Low back pain; Z88.0 Allergy status to penicillin; F17.210 Nicotine dependence, cigarettes, uncomplicated
CPT/HCPCS: 99212; A9270-GY; G0463

== ENCOUNTER 2018-03-18 10:27 | Emergency (ER) | payer OTHER ==
[2018-03-18 10:37] VITALS: BP 154/101
[2018-03-18] MEDS ORDERED: Ibuprofen TAB* 600 MG PO ONE (11:43)
--- NOTE | 2018-03-18 14:05 | UC ---
Tramaine Bean Tenzin, scribed for Earnest Leung MD on 03/18/18 at 1230 . General HPI - HPI Summary HPI Summary: Pt is a 42 years old female presenting to the complaining of flu like symptoms that has been there since Thursday. She was at a wedding this weekend and was in contact with her mom who was recently diagnosed with a flu. She took two days off work to rest but didn't feel better. She reports that she has been sleeping a lot. Pt also complains of general malaise, nausea, diarrhea, coughs, ear pain, terrible sore throat and subjective feverish in the last two days. Pt denies dysuria. No aggravating or alleviating factors were noted. She was given Ibuprofen at the . - History of Current Complaint Chief Complaint: UCGeneralIllness Stated Complaint: NAUSEA DIARRHEA Time Seen by Provider: 03/18/18 11:36 Hx Obtained From: Patient Hx Last Menstrual Period: 03/08/18 Onset/Duration: Lasting Days - last three days. Pain Intensity: 0 Associated Signs & Symptoms: Positive: Cough, Diarrhea, Fever - subjective, Nausea, Weakness - Maliase., Other - ear pain.. Negative: Dysuria - Allergy/Home Medications Allergies/Adverse Reactions: Allergies Allergy/AdvReac Type Severity Reaction Status Date / Time Penicillins Allergy unk Verified 03/18/18 10:37 PMH/Surg Hx/FS Hx/Imm Hx - Additional Past Medical History Additional PMH: Negative: DM, Cardiac disease, PE. - Surgical History Surgical History: Yes Surgery Procedure, Year, and Place: d&c 09/30/14 - Family History Known Family History: Positive: Hypertension - Social History Alcohol Use: Occasionally Alcohol Amount: 2 glasses of wine per night Substance Use Type: Prescribed Substance Use Comment - Amount & Last Used: xanax as needed Smoking Status (MU): Light Every Day Tobacco Smoker Type: Cigarettes Amount Used/How Often: 1/2 PPD Have You Smoked in the Last Year: Yes Household Exposure Type: Cigarettes - Immunization History Most Recent Influenza Vaccination: never Most Recent Tetanus Shot: up to date Most Recent Pneumonia Vaccination: never Review of Systems Constitutional: Fever, Other - General malaise Skin: Negative Eyes: Negative ENT: Sore Throat, Ear Ache Respiratory: Cough Cardiovascular: Negative Gastrointestinal: Diarrhea, Nausea Genitourinary: Negative Motor: Negative Neurovascular: Negative Musculoskeletal: Negative Neurological: Negative Psychological: Negative All Other Systems Reviewed And Are Negative: Yes Physical Exam - Summary Physical Exam Summary: General: well-appearing, no pain distress Skin: warm, color reflects adequate perfusion, dry Head: normal Eyes: EOMI, THUAN ENT: mild posterior pharynx erythema. Neck: supple, nontender Respiratory: CTA, breath sounds present Cardiovascular: RRR Abdomen: soft, nontender Bowel: present Musculoskeletal: normal, strength/ROM intact Neurological: sensory/motor intact, A&O x3 Psychological: affect/mood appropriate Triage Information Reviewed: Yes Vital Signs: Initial Vital Signs Temp 97.9 F 03/18/18 10:34 Pulse 99 03/18/18 10:34 Resp 17 03/18/18 10:34 BP 154/101 03/18/18 10:34 Pulse Ox 100 03/18/18 10:34 Vital Signs Reviewed: Yes Course/Dx - Course Course Of Treatment: Discussed Sx treatments for bronchitis. F/U pmd if not improved; recheck sooner if worse. - Differential Dx - Multi-Symptom Provider Diagnoses: Bronchitis Discharge - Sign-Out/Discharge Documenting (check all that apply): Discharge/Admit/Transfer - Discharge Plan Condition: Stable Disposition: HOME Patient Education Materials: Acute Bronchitis (ED) Referrals: Jeffry Carlos MD [Primary Care Provider] - Additional Instructions: FOLLOW UP WITH YOUR DOCTOR IF IMPROVED. GET RECHECKED FOR ANY WORSENING OF YOUR CONDITION OR QUESTIONS OR CONCERNS. - Billing Disposition and Condition Condition: STABLE Disposition: Home The documentation as recorded by the Tramaine holguin Tenzin accurately reflects the service I personally performed and the decisions made by , Earnest Leung MD.
== END 2018-03-18 12:40 | disposition home or self-care (01) ==
LOC: UCEAST 10:27
DX: J40 Bronchitis, not specified as acute or chronic (principal); Z88.0 Allergy status to penicillin; Z82.49 Family history of ischemic heart disease and other diseases of the circulatory system; F17.210 Nicotine dependence, cigarettes, uncomplicated
CPT/HCPCS: 81003; 87502; 87651; 99212; A9270-GY; G0463

== ENCOUNTER 2018-04-09 11:44 | Emergency (ER) | payer OTHER ==
[2018-04-09 12:07] VITALS: BP 160/105
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
--- NOTE | 2018-04-09 12:40 | RAD ---
Indication: Indication: Right wrist injury. 3 views of the right wrist demonstrates no fracture. No other bone or joint abnormalities identified. IMPRESSION: Unremarkable right wrist.
--- NOTE | 2018-04-09 12:40 | RAD ---
Indication: Right fifth metacarpal pain. 5 views of the right hand demonstrates no fracture. Spaces all well-preserved. IMPRESSION: No fracture of the right hand is noted.
== END 2018-04-09 12:53 | disposition home or self-care (01) ==
LOC: UCEAST 11:44
DX: S63.616A Unspecified sprain of right little finger, initial encounter (principal); S63.501A Unspecified sprain of right wrist, initial encounter; Y04.0XXA Assault by unarmed brawl or fight, initial encounter; Y93.89 Activity, other specified; Y92.009 Unspecified place in unspecified non-institutional (private) residence as the place of occurrence of the external cause; Z88.0 Allergy status to penicillin; F17.210 Nicotine dependence, cigarettes, uncomplicated
CPT/HCPCS: 99213; G0463

== ENCOUNTER 2018-08-08 13:05 | Emergency (ER) | payer OTHER ==
[2018-08-08 13:26] VITALS: BP 139/103
--- NOTE | 2018-08-08 13:49 | UC ---
Abdominal Pain Female HPI - HPI Summary HPI Summary: RLQ pain that started this AM w/ moderate severity assoc. w/ one episode of diarrhea, subj. fever, nausea, and UTI-like symptoms. - History of Current Complaint Chief Complaint: UCGU Stated Complaint: ABD PAIN Time Seen by Provider: 08/08/18 13:24 Hx Obtained From: Patient Hx Last Menstrual Period: 08/01/18 ?: No - reports no intercourse for years Onset/Duration: Sudden Onset Timing: Constant Severity Initially: Moderate Severity Currently: Moderate Pain Intensity: 6 Radiates: Yes Radiates to: RLQ Character: Burning, Cramping, Sharp Aggravating Factor(s): Movement, Other: - urination Alleviating Factor(s): Position Associated Signs and Symptoms: Positive: Fever, Urinary Symptoms, Nausea, Diarrhea - Risk Factors Ectopic Risk Factor: Negative Ovarian Torsion Risk Factor: Negative Allergies/Adverse Reactions: Allergies Allergy/AdvReac Type Severity Reaction Status Date / Time Penicillins Allergy unk Verified 08/08/18 13:12 Home Medications: Home Medications Buprenorphine HCl/Naloxone HCl [Suboxone 4 mg-1 mg Sl Film] 08/08/18 [History] Fluoxetine HCl [Prozac] 10 mg PO DAILY 08/08/18 [History Confirmed 08/08/18] Gabapentin CAP(*) [Neurontin 300 CAP(*)] 300 mg PO DAILY 08/08/18 [History Confirmed 08/08/18] PMH/Surg Hx/FS Hx/Imm Hx Previously Healthy: Yes - Surgical History Surgical History: Yes Surgery Procedure, Year, and Place: d&c 09/30/14 - Family History Known Family History: Positive: Hypertension - Social History Alcohol Use: Daily Alcohol Amount: 2 glasses of wine per night Substance Use Type: Prescribed Substance Use Comment - Amount & Last Used: xanax as needed Smoking Status (MU): Light Every Day Tobacco Smoker Type: Cigarettes Amount Used/How Often: 1/2 PPD Have You Smoked in the Last Year: Yes Household Exposure Type: Cigarettes - Immunization History Most Recent Influenza Vaccination: never Most Recent Tetanus Shot: up to date Most Recent Pneumonia Vaccination: never Review of Systems Constitutional: Fever Skin: Negative Respiratory: Negative Cardiovascular: Negative Gastrointestinal: Diarrhea - one episode, Nausea Genitourinary: Dysuria, Frequency, Other - decr. urine volume Neurological: Negative All Other Systems Reviewed And Are Negative: Yes Physical Exam Triage Information Reviewed: Yes Appearance: Pain Distress - feels she has to stand to feel less abd pain Vital Signs: Initial Vital Signs Temp 99.1 F 08/08/18 13:15 Pulse 92 08/08/18 13:15 Resp 20 08/08/18 13:15 BP 139/103 08/08/18 13:15 Pulse Ox 99 08/08/18 13:15 Vital Signs Reviewed: Yes Respiratory Exam: Normal Cardiovascular Exam: Normal Abdomen Description: Positive: Soft, Guarding - RLQ. Negative: CVA Tenderness ( R), CVA Tenderness (L), Distended Neurological: Positive: Alert Skin Exam: Normal Abd Pain Female Course/Dx - Course Course Of Treatment: Acute onset of RLQ pain w/ slightly elevated temp and bp. assoc w/ oliguria and incr. urination/urge. One episode of diarrhea. Although she could very well have UTI; appendicitis cannot be ruled out given exam. had long discussion re: complications and strongly recommended to go to ED immediately by ambulance. she declined ambulance but will head to ED. they have been notified. - Differential Dx/Diagnosis Differential Diagnosis: Appendicitis, Diverticulitis, Urinary Tract Infection Provider Diagnoses: RLQ pain, cannot r/o appendicitis. Discharge - Sign-Out/Discharge Documenting (check all that apply): Patient Departure All imaging exams completed and their final reports reviewed: No Studies - Discharge Plan Condition: Fair Disposition: HOME-RECOMMEND TO ED Patient Education Materials: Acute Abdominal Pain (ED) Referrals: No Primary Care Phys,NOPCP [Primary Care Provider] - Additional Instructions: I strongly recommend you go to Emergency Rm via ambulance to rule out appendicitis given your signs and symptoms. - Billing Disposition and Condition Condition: FAIR Disposition: Home-Recommend to ED
== END 2018-08-08 13:50 | disposition home health service (06) ==
LOC: UCEAST 13:05
DX: R10.31 Right lower quadrant pain (principal); F17.210 Nicotine dependence, cigarettes, uncomplicated; Z88.0 Allergy status to penicillin
CPT/HCPCS: 81003; 99212; G0463

== ENCOUNTER 2018-08-08 14:16 | Emergency (ER) | payer OTHER ==
--- NOTE | 2018-08-08 15:32 | ED ---
Abdominal Pain/Female - HPI Summary HPI Summary: The patient is a 42 y/o F presenting to [facility] with a chief complaint of dull RUQ and RLQ pain that does not radiate starting this morning. She presented to [facility], who sent her here because of hematuria and the need for CT. She states that the blood is most likely from her having her menstrual cycle recently starting 08/01/18. The pain is currently rated 6/10 in severity. She denies appendectomy and cholecystectomy. She has hx of thryroid disease. She smokes and drinks daily. - History of Current Complaint Chief Complaint: EDAbdPain Stated Complaint: ABD PAIN Time Seen by Provider: 08/08/18 15:18 Hx Obtained From: Patient Hx Last Menstrual Period: 08/01/18 Onset/Duration: Sudden Onset, Lasting Hours - this morning, Still Present Timing: Hours Severity Initially: Moderate Severity Currently: Moderate Pain Intensity: 6 Pain Scale Used: 0-10 Numeric Location: Discrete At: RUQ, Discrete At: RLQ Radiates: No Character: Dull Aggravating Factor(s): Nothing Alleviating Factor(s): Nothing Associated Signs and Symptoms: Positive: Other: - hematuria Allergies/Adverse Reactions: Allergies Allergy/AdvReac Type Severity Reaction Status Date / Time Penicillins Allergy unk Verified 08/08/18 13:12 PMH/Surg Hx/FS Hx/Imm Hx Endocrine/Hematology History: Reports: Hx Thyroid Disease Denies: Hx Diabetes Cardiovascular History: Denies: Hx Hypertension Respiratory History: Denies: Hx Asthma, Hx Chronic Obstructive Pulmonary Disease (COPD) GI History: Denies: Hx Ulcer - Surgical History Surgery Procedure, Year, and Place: d&c 09/30/14 Infectious Disease History: No Infectious Disease History: Denies: Hx Clostridium Difficile, Hx Hepatitis, Hx Human Immunodeficiency Virus (HIV), Hx of Known/Suspected MRSA, Hx Shingles, Hx Tuberculosis, Hx Known/ Suspected VRE, Hx Known/Suspected VRSA, History Other Infectious Disease, Traveled Outside the [place] in Last 30 Days - Family History Known Family History: Positive: Hypertension - Social History Alcohol Use: Daily Alcohol Amount: 2 glasses of wine per night Substance Use Type: Reports: Prescribed Substance Use Comment - Amount & Last Used: xanax as needed Smoking Status (MU): Light Every Day Tobacco Smoker Type: Cigarettes Amount Used/How Often: 1/2 PPD Have You Smoked in the Last Year: Yes Review of Systems Positive: Abdominal Pain - RUQ and RLQ Positive: hematuria All Other Systems Reviewed And Are Negative: Yes Physical Exam - Summary Physical Exam Summary: Appearance: Well appearing, no pain distress Skin: warm, dry, reflects adequate perfusion Head/face: normal Eyes: EOMI, THUAN ENT: normal Neck: supple, non-tender Respiratory: CTA, breath sounds present Cardiovascular: RRR, pulses symmetrical Abdomen: soft, tenderness in RUQ and RLQ Bowel: present Musculoskeletal: normal, strength/ROM intact Neuro: normal, sensory motor intact, A&Ox3 Triage Information Reviewed: Yes Vital Signs On Initial Exam: Initial Vitals Temp Pulse Resp BP Pulse Ox 97.5 F 88 14 145/98 100 08/08/18 14:22 08/08/18 14:22 08/08/18 14:22 08/08/18 14:22 08/08/18 14:22 Vital Signs Reviewed: Yes Diagnostics - Vital Signs Vital Signs Temp Pulse Resp BP Pulse Ox 08/08/18 14:22 97.5 F 88 14 145/98 100 - Laboratory Result Diagrams: 08/08/18 15:43 08/08/18 15:43 Lab Statement: Any lab studies that have been ordered have been reviewed, and results considered in the medical decision making process. - Ultrasound No standard instances Ultrasound Interpretation Completed By: Radiologist Summary of Ultrasound Findings: Gallbladder US: 1. Normal examination of the gallbladder. 2. Findings suggestive of fatty infiltration of the liver, unchanged. ED physician has reviewed this report. Re-Evaluation - Re-Evaluation 1 Re-Evaluation Time: 19:59 Change: Improved Comment: Discussing ABD/PEL CT results and plan for dispo. Pt is feeling better. Abdominal Pain Fem Course/Dx - Course Course Of Treatment: The patient is a 42 y/o F presenting to [facility] from [facility] with a chief complaint of dull RUQ and RLQ pain that does not radiate starting this morning, accompanied by hematuria, which she states is from recently having her menstrual cycle. She denies appendectomy and cholecystectomy. Upon exam, the patient has tenderness in the RUQ and RLQ. In the ED course, the patient was given Ns, Morphine, Zofran, and Omnipaque. Blood work obtained. Gallbladder US is negative. The patient is diagnosed with abd pain. Patient will be a sign-out to Dr. Kraig Steinberg MD, at shift change at [1900] pending CT Abd/Pel results and disposition. - Diagnoses Differential Diagnosis: Positive: Appendicitis, Diverticulitis, Renal Colic, Urinary Tract Infection Provider Diagnoses: Ureterolithiasis, Renal colic on right side Discharge - Sign-Out/Discharge Documenting (check all that apply): Sign-Out Patient Signing out patient TO: Kraig Steinberg - Patient will be a sign-out to Dr. Kraig Steinberg MD, at shift change at [address] Abd/Pel results and disposition. - Discharge Plan Condition: Improved Disposition: HOME Prescriptions: Naproxen [Naproxen 500 mg tab] 500 mg PO BID PRN #12 tablet.dr PRN Reason: Pain Ondansetron [Zofran Odt] 4 mg PO TID PRN #12 tab.rapdis PRN Reason: Nausea Patient Education Materials: Kidney Stones (ED) Forms: *Work Release Referrals: Monika Kerr MD [Primary Care Provider] - Additional Instructions: Stay well-hydrated. Return with uncontrolled pain, vomiting, worse, new symptoms or other concerns. Call your doctor first thing out morning to schedule prompt follow-up - Billing Disposition and Condition Condition: IMPROVED Disposition: Home - Attestation Statements Document Initiated by Wang: Yes Documenting Scribe: Carlita Pop Provider For Whom Wang is Documenting (Include Credential): Dr. Michael Young MD Scribe Attestation: Carlita Bean scribed for Dr. Michael Young MD on 08/09/18 at 0733. Scribe Documentation Reviewed: Yes Provider Attestation: The documentation as recorded by the Carlita holguin accurately reflects the service I personally performed and the decisions made by me, Dr. Michael Young MD
[2018-08-08] MEDS ORDERED: NS 0.9% 1000 ML* 1,000 ML IV ONE (15:33)
[2018-08-08] MEDS ORDERED: Morphine INJ* 4 MG/ML 1 ML SYRINGE (NEW SYRINGE VERSION) IV ONE ×2 (15:33→18:16)
[2018-08-08] MEDS ORDERED: Ondansetron INJ* 2 MG/ML VIAL IV ONE (15:33)
[2018-08-08 15:53] LABS: ABS Basophils 0 10^3/ul (0-0.2); ABS Eosinophils 0.1 10^3/ul (0-0.6); ABS Lymphocytes 1.5 10^3/ul (1.0-4.8); ABS Monocytes 0.7 10^3/ul (0-0.8); ABS Neutrophils 6.4 10^3/ul (1.5-7.7); ABS Nucleated RBC 0 10^3/ul; Eosinophil % 0.7 % (0-6); Hematocrit 42 % (35-47); Hemoglobin 14.7 g/dl (12.0-16.0); Lymphocyte % 17.4 % (25-47); Mean Corpuscular HGB Conc 35 g/dl (31-36); Mean Corpuscular Hemoglobin 35 pg (27-31); Mean Corpuscular Volume 100 fL (80-97); Mean Platelet Volume 8.9 um3 (7.4-10.4); Nucleated Red Blood Cells % 0; Platelet Count 279 10^3/ul (150-450); Red Blood Count 4.23 10^6/ul (4.00-5.40); Red Cell Distribution Width 13 % (10.5-15); White Blood Count 8.7 10^3/ul (3.5-10.8)
[2018-08-08 16:01] LABS: INR 0.98 (0.77-1.02)
[2018-08-08 16:12] LABS: EGFR Non-African American 78.3 (>60)
--- NOTE | 2018-08-08 16:56 | RAD ---
INDICATION: Right upper quadrant pain. COMPARISON: Comparison is made with a prior right upper quadrant ultrasound from March 25, 2010. TECHNIQUE: Multiple real-time images of the right upper quadrant were obtained. FINDINGS: The gallbladder appear normal. No gallstones, gallbladder wall thickening or pericholecystic fluid is present. No intra or extrahepatic ductal distention is present. The common bile duct measured 0.3 cm in diameter. The liver is increased in echogenicity suggestive of fatty infiltration. No significant focal abnormality is seen. The pancreas is partially obscured by overlying bowel gas. The right kidney is normal in size without evidence for hydronephrosis. IMPRESSION: 1. NORMAL EXAMINATION OF THE GALLBLADDER. 2. FINDINGS SUGGESTIVE OF FATTY INFILTRATION OF THE LIVER, UNCHANGED.
[2018-08-08] MEDS ORDERED: Iohexol 300* (CONTRAST) 10 ML SDV IV ONE (17:28)
--- NOTE | 2018-08-08 19:51 | RAD ---
EXAM: CT Abdomen and Pelvis With Intravenous Contrast EXAM DATE/TIME: 08/08/2018 6:58 PM CLINICAL HISTORY: 42 years old, female; Pain; Abdominal pain; Additional info: RT lower and upper quad tend R/O appendicitis TECHNIQUE: Axial computed tomography images of the abdomen and pelvis with intravenous contrast. All CT scans at this facility use at least one of these dose optimization techniques: automated exposure control; mA and/or kV adjustment per patient size (includes targeted exams where dose is matched to clinical indication); or iterative reconstruction. Coronal and sagittal reformatted images were created and reviewed. CONTRAST: 81 ml of omni 300 administered intravenously. COMPARISON: A/P WO CT ABD/PEL W/O 10/06/2014 11:10 AM FINDINGS: Lower thorax: No acute findings. ABDOMEN: Liver: Normal. No mass. Gallbladder and bile ducts: Normal. No calcified stones. No ductal dilation. Pancreas: Normal. No ductal dilation. Spleen: Normal. No splenomegaly. Adrenals: Normal. No mass. Kidneys and ureters: No renal solid cortical lesions, calculi, or pelvocaliectasis. A 0.2 cm calculus is seen in the right UVJ (series 2, image 73). No associated ureterectasis. Stomach and bowel: Incompletely distended grossly normal stomach. Normal caliber small bowel. No colonic masses or segmental wall thickening. Appendix: Normal caliber appendix without wall thickening or adjacent inflammation. PELVIS: Bladder: Thin-walled bladder with no focal nodularity, perivesicular stranding, or calcifications. Reproductive: Uterus and ovaries are normal. ABDOMEN and PELVIS: Intraperitoneal space: Normal. No free air. No significant fluid collection. Bones/joints: No fractures. No suspicious bone lesions. Soft tissues: Normal. No hernias. Vasculature: Normal caliber aorta with no evidence of dissection or rupture. Patent IVC. Lymph nodes: Normal. No enlarged lymph nodes. IMPRESSION: Nonobstructing 2 mm calculus right UVJ. To contact [facility] with a general question: Operations Center - [phone] For direct physician to physician contact: Physician Hotline - [phone] [facility] ([facility] Facility ID #[id number])
[2018-08-08] MEDS ORDERED: Ketorolac INJ* 30 MG/ML 1 ML VIAL IV PUSH ONE (19:56)
--- NOTE | 2018-08-08 20:00 | ED ---
Progress - Progress Note Progress Note: RECEIVING SIGN OUT FROM DR. MURPHY AT SHIFT CHANGE PENDING CT, DISPO. ED provider at bedside at 1958. Pt is a 42 y/o F presenting to ED with c/o R-sided abd pain onset this AM. Right flank pain. CT positive for 2 mm stone at the right UVJ. Her pain is tolerated at this point. Toradol prior to discharge along with Flomax. Treat symptomatically and refer back to primary care physician. - EKG/XRAY/CT CT: A/P: Nonobstructing 2mm calculus right UVJ. Ed provider has reviewed report Re-Evaluation - Re-Evaluation 1 Re-Evaluation Time: 19:59 Change: Improved Comment: Discussing ABD/PEL CT results and plan for dispo. Pt is feeling better. Course/Dx - Course Course Of Treatment: 2 mm distal right UVJ stone. Pain relieved here. Discharge and follow-up. - Diagnoses Provider Diagnoses: Ureterolithiasis, Renal colic on right side Discharge - Sign-Out/Discharge Documenting (check all that apply): Patient Departure - DC, Receiving Sign-Out Receiving patient FROM: Michael Murphy - pending CT and dispo - Discharge Plan Condition: Improved Disposition: HOME Prescriptions: Naproxen [Naproxen 500 mg tab] 500 mg PO BID PRN #12 tablet.dr PRN Reason: Pain Ondansetron [Zofran Odt] 4 mg PO TID PRN #12 tab.rapdis PRN Reason: Nausea Patient Education Materials: Kidney Stones (ED) Forms: *Work Release Referrals: Monika Kerr MD [Primary Care Provider] - Additional Instructions: Stay well-hydrated. Return with uncontrolled pain, vomiting, worse, new symptoms or other concerns. Call your doctor first thing out morning to schedule prompt follow-up - Billing Disposition and Condition Condition: IMPROVED Disposition: Home - Attestation Statements Document Initiated by Scribe: Yes Documenting Scribe: Catrachito Dow Provider For Whom Scribe is Documenting (Include Credential): Dr. Kraig Steinberg MD Scribe Attestation: Catrachito Bean, scribed for Dr. Kraig Steinberg MD on 08/08/18 at 2147. Scribe Documentation Reviewed: Yes Provider Attestation: The documentation as recorded by the scribe, SooYoung VanDeMark accurately reflects the service I personally performed and the decisions made by me, Dr. Kraig Steinberg MD
[2018-08-08] MEDS ORDERED: Tamsulosin CAP* 0.4 MG PO ONE (20:03)
[2018-08-08 20:24] VITALS: BP 175/123
== END 2018-08-08 20:25 | disposition home or self-care (01) ==
LOC: ED 14:16
DX: N20.2 Calculus of kidney with calculus of ureter (principal); Z88.0 Allergy status to penicillin; F17.210 Nicotine dependence, cigarettes, uncomplicated
CPT/HCPCS: 36415; 74177; 76705; 80053; 83605; 83690; 84484; 84702; 85025; 85610; 85730; 96366; 96374; 96375; 96376; 99284; J1885; J2270; J2405; Q9967

== ENCOUNTER 2018-10-01 13:16 | Emergency (ER) | payer OTHER ==
[2018-10-01] MEDS ORDERED: Ibuprofen TAB* 600 MG PO ONE (13:58)
--- NOTE | 2018-10-01 14:00 | UC ---
General HPI - HPI Summary HPI Summary: Pt presents to ED reporting 6 days right facial pain with radiation to the right ear. Pt states pain increases with chewing and jaw opening. Pt denies trauma, dental pain. Pt with a h/o left TMJ but states this feels different, "more in ear." Pt applied heat pack. No analgesia taken. No drainage from ear or sinus pressure. Pt without other complaints. Pt states she has an Rx for Xanax but is "out" so has not taken - will pick you Rx today. Pt states holidays are "tough" for her - no SI/HI - has family support. Does not think she grinds her teeth. Pt's medications reviewed this visit - History of Current Complaint Chief Complaint: UCGeneralIllness Stated Complaint: FACIAL PAIN Time Seen by Provider: 10/01/18 13:20 Hx Obtained From: Patient Hx Last Menstrual Period: 09/17/18 Onset Severity: Moderate Current Severity: Moderate Pain Intensity: 8 - Allergy/Home Medications Allergies/Adverse Reactions: Allergies Allergy/AdvReac Type Severity Reaction Status Date / Time Penicillins Allergy unk Verified 08/08/18 13:12 Home Medications: Home Medications Hydrochlorothiazide TAB* [Hydrodiuril TAB*] 25 mg PO DAILY 10/01/18 [History Confirmed 10/01/18] Levothyroxine TAB* [Synthroid TAB*] 75 mcg PO DAILY 10/01/18 [History Confirmed 10/01/18] PMH/Surg Hx/FS Hx/Imm Hx Previously Healthy: Yes Psychological History: Anxiety - Surgical History Surgical History: Yes Surgery Procedure, Year, and Place: d&c 09/30/14 - Family History Known Family History: Positive: Hypertension - Social History Alcohol Use: Daily Alcohol Amount: "few glasses of wine per night" Substance Use Type: None Substance Use Comment - Amount & Last Used: xanax as needed Smoking Status (MU): Light Every Day Tobacco Smoker Type: Cigarettes Amount Used/How Often: 1/2 PPD Have You Smoked in the Last Year: Yes Household Exposure Type: Cigarettes - Immunization History Most Recent Influenza Vaccination: never Most Recent Tetanus Shot: up to date Most Recent Pneumonia Vaccination: never Physical Exam Triage Information Reviewed: Yes Vital Signs: Initial Vital Signs Temp 98.6 F 10/01/18 13:23 Pulse 95 10/01/18 13:23 Resp 18 10/01/18 13:23 BP 172/107 10/01/18 13:23 Pulse Ox 98 10/01/18 13:23 Discharge - Discharge Plan Condition: Stable Disposition: HOME Prescriptions: Azithromycin TAB* [Zithromax TAB (Z-BETTY) 250 mg #6 tabs] 2 tab PO .TODAY, THEN 1 DAILY #14 betty Patient Education Materials: Ear Infection (ED), Temporomandibular Disorder (ED ) Forms: *Work Release Referrals: Madelyn James PA [Primary Care Provider] - Additional Instructions: - Okay to alternate ibuprofen (Advil, Motrin) 600mg and Tylenol every 3 hours for pain or fever. Take with food. Do NOT take for more than 4-5 days. - Take antibiotics as prescribed until gone - apply heat to your cheek - chew soft food - Keep your appointment as schedule Thursday with Ms. James Contact Ms. Jamse's office or go to the emergency department with worsening pain , fever, or any other concerns - Billing Disposition and Condition Condition: STABLE Disposition: Home
[2018-10-01 14:06] VITALS: BP 166/88
--- NOTE | 2018-10-02 12:54 | UC ---
- Progress Note Progress Note: NO IMAGING. NO CHANGE IN MGMT. Discharge - Discharge Plan Condition: Stable Disposition: HOME Prescriptions: Azithromycin TAB* [Zithromax TAB (Z-BETTY) 250 mg #6 tabs] 2 tab PO .TODAY, THEN 1 DAILY #14 betty Patient Education Materials: Ear Infection (ED), Temporomandibular Disorder (ED ) Forms: *Work Release Referrals: Madelyn James PA [Primary Care Provider] - Additional Instructions: - Okay to alternate ibuprofen (Advil, Motrin) 600mg and Tylenol every 3 hours for pain or fever. Take with food. Do NOT take for more than 4-5 days. - Take antibiotics as prescribed until gone - apply heat to your cheek - chew soft food - Keep your appointment as schedule Thursday with Ms. James Contact Ms. James's office or go to the emergency department with worsening pain , fever, or any other concerns - Billing Disposition and Condition Condition: STABLE Disposition: Home
== END 2018-10-01 14:10 | disposition home or self-care (01) ==
LOC: UCEAST 13:16
DX: R51 Headache (principal); F17.210 Nicotine dependence, cigarettes, uncomplicated; Z88.0 Allergy status to penicillin
CPT/HCPCS: 99212; A9270-GY; G0463

== ENCOUNTER 2020-12-01 19:00 | Inpatient (IN) ==
[2020-12-01 20:20] LABS: Urine Appearance Cloudy; Urine Bilirubin Negative (Negative); Urine Blood 3+ (Negative); Urine Color Yellow; Urine Glucose Negative (Negative); Urine Ketones Trace (Negative); Urine Nitrite Negative (Negative); Urine Protein 1+(30 mg/dL) (Negative); Urine Specific Gravity 1.029 (1.010-1.030); Urine Urobilinogen Negative (Negative)
[2020-12-01 20:21] LABS: Urine Bacteria Absent (Absent); Urine Red Blood Cell 2+(6-10/hpf) (Absent); Urine Squamous Epithelial Cell Present (Absent); Urine White Blood Cell Trace(0-5/hpf) (Absent)
[2020-12-01 20:34] LABS: Urine Benzodiazepine Screen Presumptive Positive (None Detect); Urine Cannabinoids Screen None Detected (None Detect); Urine Opiates Screen None Detected (None Detect)
[2020-12-01 22:53] LABS: ABS Eosinophils 0.2 10^3/ul (0-0.6); ABS Lymphocytes 2.7 10^3/ul (1.0-4.8); ABS Monocytes 0.8 10^3/ul (0-0.8); ABS Neutrophils 3.5 10^3/ul (1.5-7.7); Eosinophil % 2.2 %; Hematocrit 35 % (35-47); Hemoglobin 12.4 g/dL (12.0-16.0); Lymphocyte % 37.7 %; Mean Corpuscular HGB Conc 35 g/dL (31-36); Mean Corpuscular Hemoglobin 33 pg (27-31); Mean Corpuscular Volume 94 fL (80-97); Mean Platelet Volume 8.3 fL (7.4-10.4); Nucleated Red Blood Cells % 0.1; Platelet Count 284 10^3/uL (150-450); Red Blood Count 3.74 10^6 /uL (3.70-4.87); Red Cell Distribution Width 13 % (10-15); White Blood Count 7.3 10^3/uL (3.5-10.8)
[2020-12-01 23:10] LABS: ALT 20 U/L (7-52); AST 25 U/L (13-39); Albumin 4.3 g/dL (3.2-5.2); Albumin/Globulin Ratio 1.7 (1-3); Alkaline Phosphatase 50 U/L (34-104); Anion Gap 7 mmol/L (2-11); BUN/Creatinine Ratio 25.7 (8-20); Blood Urea Nitrogen 26 mg/dL (6-24); CO2 Carbon Dioxide 25 mmol/L (22-32); Calcium 9.2 mg/dL (8.6-10.3); Chloride 105 mmol/L (101-111); EGFR African American 71.4 (>60); Globulin 2.5 g/dL (2-4); Glucose 107 mg/dL (70-100); Potassium 3.8 mmol/L (3.5-5.0); Sodium 137 mmol/L (135-145); Total Protein 6.8 g/dL (6.4-8.9)
[2020-12-01 23:31] LABS: Acetaminophen < 15 mcg/mL; Alcohol, S < 10 mg/dL (<10); Salicylate < 2.50 mg/dL (<30)
[2020-12-01 23:46] LABS: TSH Ultra Thyroid Stim Horm 9.99 mcIU/mL (0.34-5.60)
[2020-12-02] MEDS ORDERED: Buprenorp/Nalox 2-0.5 mg SL TB SL ONE (03:04)
[2020-12-02] MEDS ORDERED: Al Hydrox/Mg Hydrox/Simet LIQ 30 ML UDC PO PRN (04:09)
[2020-12-02] MEDS: Vitamin THERAPEUTIC TAB PO SCH (10:22)
[2020-12-02] MEDS ORDERED: diPHENhydraMINE IV 50 MG/ML 1 ml VIAL (BENADRYL) ONE (10:32)
[2020-12-02] MEDS ORDERED: diPHENhydraMINE IV 50 MG/ML 1 ml VIAL (BENADRYL) IM ONE (10:35)
[2020-12-02] MEDS: Buprenorp/Nalox 2-0.5 mg SL TB SL SCH ×3 (13:45→20:34)
[2020-12-02] MEDS: Amphetamine MIXED SALT 10mgTAB PO SCH (14:00)
[2020-12-03] MEDS: Amphetamine MIXED SALT 10mgTAB PO SCH ×2 (07:42→12:02)
[2020-12-03 08:38] VITALS: BP 131/87
[2020-12-03] MEDS: Vitamin THERAPEUTIC TAB PO SCH (08:58)
[2020-12-03] MEDS: Buprenorp/Nalox 2-0.5 mg SL TB SL SCH ×2 (08:59→13:30)
[2020-12-03 09:11] LABS: HDL Cholesterol 74.5 mg/dL
== END 2020-12-03 16:30 | disposition home or self-care (01) | DRG 750 ==
LOC: ED 19:00 → BSU 12-02 02:19
PROVIDERS: ADMIT Psychiatry & Neurology Addiction Psychiatry; ATTEND Psychiatry & Neurology Psychiatry